=== PATIENT | male | born 1995 | race Caucasian/White ===

== ENCOUNTER 2019-12-09 18:10 | Inpatient (IN) ==
[2019-12-09 18:43] LABS: ABS Eosinophils 0.1 10^3/ul (0-0.6); ABS Lymphocytes 2.2 10^3/ul (1.0-4.8); ABS Monocytes 0.7 10^3/ul (0-0.8); ABS Neutrophils 9.5 10^3/ul (1.5-7.7); Eosinophil % 1.1 %; Hematocrit 45 % (42-52); Hemoglobin 15.8 g/dL (14.0-18.0); Lymphocyte % 17.8 %; Mean Corpuscular HGB Conc 36 g/dL (31-36); Mean Corpuscular Hemoglobin 34 pg (27-31); Mean Corpuscular Volume 94 fL (80-94); Mean Platelet Volume 7.9 fL (7.4-10.4); Platelet Count 306 10^3/uL (150-450); Red Blood Count 4.74 10^6 /uL (4.18-5.48); Red Cell Distribution Width 13 % (10-15); White Blood Count 12.6 10^3/uL (3.5-10.8)
[2019-12-09 18:49] LABS: Urine Appearance Cloudy; Urine Bilirubin Negative (Negative); Urine Blood Negative (Negative); Urine Color Amber; Urine Glucose Negative (Negative); Urine Ketones Trace (Negative); Urine Nitrite Negative (Negative); Urine Protein Negative (Negative); Urine Urobilinogen Positive (Negative)
[2019-12-09] MEDS ORDERED: LORazepam 2 mg VIAL 1 ml IM ONE (18:49)
[2019-12-09] MEDS ORDERED: diPHENhydraMINE IV 50 MG/ML 1 ml VIAL (BENADRYL) IM ONE (18:49)
[2019-12-09] MEDS ORDERED: Haloperidol 5 mg/ml SDV IV/IM 5 MG/ML AMP IM ONE (18:49)
[2019-12-09] MEDS ORDERED: Lorazepam PYXIS KEY ONE (18:51)
[2019-12-09 19:04] LABS: ALT 13 U/L (7-52); AST 18 U/L (13-39); Albumin 5.2 g/dL (3.2-5.2); Alkaline Phosphatase 43 U/L (34-104); Anion Gap 9 mmol/L (2-11); BUN/Creatinine Ratio 14.3 (8-20); Blood Urea Nitrogen 15 mg/dL (6-24); CO2 Carbon Dioxide 23 mmol/L (22-32); Calcium 10.5 mg/dL (8.6-10.3); Chloride 107 mmol/L (101-111); EGFR African American 103.3 (>60); EGFR Non-African American 85.4 (>60); Globulin 2.6 g/dL (2-4); Glucose 111 mg/dL (70-100); Sodium 139 mmol/L (135-145); Total Protein 7.8 g/dL (6.4-8.9)
[2019-12-09 19:05] LABS: Urine Benzodiazepine Screen None Detected (None Detect); Urine Cannabinoids Screen Presumptive Positive (None Detect); Urine Opiates Screen None Detected (None Detect)
[2019-12-09 19:25] LABS: Acetaminophen < 15 mcg/mL; Alcohol, S < 10 mg/dL (<10); Salicylate < 2.50 mg/dL (<30)
[2019-12-09 19:40] LABS: TSH Ultra Thyroid Stim Horm 2.27 mcIU/mL (0.34-5.60)
[2019-12-10] MEDS ORDERED: Al Hydrox/Mg Hydrox/Simet LIQ 30 ML UDC PO PRN (06:14)
[2019-12-10] MEDS: Nicotine PATCH 21 MG/24 HR PATCH TRANSDERM SCH (08:17)
[2019-12-10] MEDS: Nicotine GUM 2MG FRUIT FLAVOR PO PRN ×2 (08:18→20:47)
[2019-12-10] MEDS: Vitamin THERAPEUTIC TAB PO SCH (08:18)
[2019-12-11] MEDS: Vitamin THERAPEUTIC TAB PO SCH (08:30)
[2019-12-11] MEDS: Nicotine PATCH 21 MG/24 HR PATCH TRANSDERM SCH (08:30)
[2019-12-11 08:35] LABS: HDL Cholesterol 53.9 mg/dL
[2019-12-11] MEDS: Nicotine GUM 2MG FRUIT FLAVOR PO PRN (14:39)
[2019-12-12] MEDS: Nicotine PATCH 21 MG/24 HR PATCH TRANSDERM SCH (08:34)
[2019-12-12] MEDS: Vitamin THERAPEUTIC TAB PO SCH (08:34)
[2019-12-12] MEDS: Nicotine GUM 2MG FRUIT FLAVOR PO PRN (15:13)
[2019-12-13] MEDS: Vitamin THERAPEUTIC TAB PO SCH (09:22)
[2019-12-13] MEDS: Nicotine GUM 2MG FRUIT FLAVOR PO PRN ×2 (09:22→19:35)
[2019-12-13] MEDS: Nicotine PATCH 21 MG/24 HR PATCH TRANSDERM SCH (11:55)
[2019-12-14] MEDS: Nicotine PATCH 21 MG/24 HR PATCH TRANSDERM SCH (09:24)
[2019-12-14] MEDS: Vitamin THERAPEUTIC TAB PO SCH (09:24)
[2019-12-14] MEDS: Nicotine GUM 2MG FRUIT FLAVOR PO PRN ×2 (16:11→18:46)
[2019-12-15] MEDS: Nicotine PATCH 21 MG/24 HR PATCH TRANSDERM SCH (08:56)
[2019-12-15] MEDS: Vitamin THERAPEUTIC TAB PO SCH (08:57)
[2019-12-15] MEDS: Nicotine GUM 2MG FRUIT FLAVOR PO PRN (09:58)
[2019-12-16] MEDS: Nicotine PATCH 21 MG/24 HR PATCH TRANSDERM SCH (08:17)
[2019-12-16] MEDS: Vitamin THERAPEUTIC TAB PO SCH (08:18)
[2019-12-17] MEDS: Nicotine GUM 2MG FRUIT FLAVOR PO PRN ×4 (08:30→23:12)
[2019-12-17] MEDS: Vitamin THERAPEUTIC TAB PO SCH (08:31)
[2019-12-17] MEDS: Nicotine PATCH 21 MG/24 HR PATCH TRANSDERM SCH (10:50)
[2019-12-18] MEDS: Nicotine PATCH 21 MG/24 HR PATCH TRANSDERM SCH (08:20)
[2019-12-18] MEDS: Vitamin THERAPEUTIC TAB PO SCH (08:20)
[2019-12-18 09:19] VITALS: BP 114/61
== END 2019-12-18 16:03 | disposition home or self-care (01) | DRG 885 ==
LOC: ED 18:10 → BSU 12-10 04:17
PROVIDERS: ADMIT Psychiatry & Neurology Psychiatry; ATTEND Psychiatry & Neurology Psychiatry

== ENCOUNTER 2020-09-28 11:03 | Inpatient (IN) ==
[2020-09-28 11:44] LABS: ABS Eosinophils 0.1 10^3/ul (0-0.6); ABS Monocytes 0.4 10^3/ul (0-0.8); ABS Neutrophils 5.4 10^3/ul (1.5-7.7); Eosinophil % 1.1 %; Hematocrit 46 % (42-52); Lymphocyte % 25.1 %; Mean Corpuscular HGB Conc 35 g/dL (31-36); Mean Corpuscular Hemoglobin 33 pg (27-31); Mean Corpuscular Volume 95 fL (80-94); Mean Platelet Volume 8.4 fL (7.4-10.4); Platelet Count 259 10^3/uL (150-450); Red Blood Count 4.82 10^6 /uL (4.18-5.48); Red Cell Distribution Width 13 % (10-15); White Blood Count 7.9 10^3/uL (3.5-10.8)
[2020-09-28 11:51] LABS: Urine Appearance Clear; Urine Bilirubin Negative (Negative); Urine Blood Negative (Negative); Urine Color Yellow; Urine Glucose Negative (Negative); Urine Ketones Negative (Negative); Urine Nitrite Negative (Negative); Urine Protein Negative (Negative); Urine Specific Gravity 1.011 (1.002-1.030); Urine Urobilinogen Negative (Negative)
[2020-09-28 12:00] LABS: Urine Benzodiazepine Screen None Detected (None Detect); Urine Cannabinoids Screen Presumptive Positive (None Detect); Urine Opiates Screen None Detected (None Detect)
[2020-09-28 12:03] LABS: ALT 11 U/L (7-52); AST 16 U/L (13-39); Albumin 4.7 g/dL (3.2-5.2); Alkaline Phosphatase 50 U/L (35-149); Anion Gap 6 mmol/L (2-11); Blood Urea Nitrogen 10 mg/dL (6-24); CO2 Carbon Dioxide 25 mmol/L (22-32); Calcium 10.1 mg/dL (8.6-10.3); Chloride 107 mmol/L (101-111); EGFR African American 103.7 (>60); EGFR Non-African American 85.7 (>60); Globulin 2.3 g/dL (2-4); Glucose 97 mg/dL (70-100); Potassium 3.7 mmol/L (3.5-5.0); Sodium 138 mmol/L (135-145)
[2020-09-28 12:20] LABS: Alcohol, S < 10 mg/dL (<10); Salicylate < 2.50 mg/dL (<30)
[2020-09-28 12:28] LABS: Acetaminophen < 15 mcg/mL
[2020-09-28 12:36] LABS: TSH Ultra Thyroid Stim Horm 2.77 mcIU/mL (0.34-5.60)
[2020-09-28] MEDS ORDERED: Al Hydrox/Mg Hydrox/Simet LIQ 30 ML UDC PO PRN (15:21)
[2020-09-28] MEDS: Nicotine GUM 2MG FRUIT FLAVOR PO PRN (18:50)
[2020-09-28] MEDS: Lithium Carbonate ER 450mg TAB PO SCH (20:06)
[2020-09-29] MEDS: Nicotine GUM 2MG FRUIT FLAVOR PO PRN ×2 (07:05→08:58)
[2020-09-29] MEDS: Vitamin THERAPEUTIC TAB PO SCH (08:16)
[2020-09-29 12:46] LABS: Lithium < 0.10 mmol/L (0.6-1.2)
[2020-09-29] MEDS: Lithium Carbonate ER 450mg TAB PO SCH (20:38)
[2020-09-30] MEDS: Nicotine GUM 2MG FRUIT FLAVOR PO PRN ×3 (04:15→12:42)
[2020-09-30] MEDS: Vitamin THERAPEUTIC TAB PO SCH (07:53)
[2020-09-30] MEDS: Lithium Carbonate ER 450mg TAB PO SCH (19:33)
[2020-10-01] MEDS: Vitamin THERAPEUTIC TAB PO SCH (07:28)
[2020-10-01] MEDS: Nicotine GUM 2MG FRUIT FLAVOR PO PRN ×2 (08:02→19:00)
[2020-10-01] MEDS: Lithium Carbonate ER 450mg TAB PO SCH (19:29)
[2020-10-02] MEDS: Vitamin THERAPEUTIC TAB PO SCH (07:39)
[2020-10-02] MEDS: Nicotine GUM 2MG FRUIT FLAVOR PO PRN (08:29)
[2020-10-02] MEDS: Lithium Carbonate ER 450mg TAB PO SCH (20:10)
[2020-10-03] MEDS: Vitamin THERAPEUTIC TAB PO SCH (07:28)
[2020-10-03] MEDS: Nicotine GUM 2MG FRUIT FLAVOR PO PRN ×2 (07:29→09:45)
[2020-10-04] MEDS: Lithium Carbonate ER 450mg TAB PO SCH ×2 (00:25→20:29)
[2020-10-04] MEDS: Nicotine GUM 2MG FRUIT FLAVOR PO PRN (06:07)
[2020-10-04] MEDS: Vitamin THERAPEUTIC TAB PO SCH (08:24)
[2020-10-05] MEDS: Nicotine GUM 2MG FRUIT FLAVOR PO PRN ×4 (06:42→19:45)
[2020-10-05] MEDS: Vitamin THERAPEUTIC TAB PO SCH (10:08)
[2020-10-05 15:57] LABS: HDL Cholesterol 60.5 mg/dL
[2020-10-05 16:47] LABS: Lithium 0.43 mmol/L (0.6-1.2)
[2020-10-05] MEDS: Lithium Carbonate ER 450mg TAB PO SCH (20:14)
[2020-10-06] MEDS: Vitamin THERAPEUTIC TAB PO SCH (08:59)
[2020-10-06] MEDS: Nicotine GUM 2MG FRUIT FLAVOR PO PRN ×3 (08:59→17:54)
[2020-10-06] MEDS ORDERED: LORazepam 2 mg VIAL 1 ml ONE (15:13)
[2020-10-06] MEDS ORDERED: diPHENhydraMINE IV 50 MG/ML 1 ml VIAL (BENADRYL) ONE (15:13)
[2020-10-06] MEDS: chlorproMAZINE 50 mg TAB (NF strength) PO PRN (15:20)
[2020-10-06] MEDS ORDERED: Lorazepam PYXIS KEY PRN (15:21)
[2020-10-06] MEDS ORDERED: diPHENhydraMINE IV 50 MG/ML 1 ml VIAL (BENADRYL) IM ONE (15:21)
[2020-10-06] MEDS ORDERED: LORazepam 2 mg VIAL 1 ml IM ONE (15:21)
[2020-10-06] MEDS: Lithium Carbonate ER 450mg TAB PO SCH (20:07)
[2020-10-07] MEDS: Vitamin THERAPEUTIC TAB PO SCH (08:37)
[2020-10-07] MEDS: Nicotine GUM 2MG FRUIT FLAVOR PO PRN (08:38)
[2020-10-07] MEDS: chlorproMAZINE 50 mg TAB (NF strength) PO PRN (17:28)
[2020-10-08] MEDS: Vitamin THERAPEUTIC TAB PO SCH (07:39)
[2020-10-09] MEDS: Nicotine GUM 2MG FRUIT FLAVOR PO PRN (07:29)
[2020-10-09] MEDS: Vitamin THERAPEUTIC TAB PO SCH (08:24)
[2020-10-09] MEDS: chlorproMAZINE 50 mg TAB (NF strength) PO PRN (17:23)
[2020-10-10] MEDS: Vitamin THERAPEUTIC TAB PO SCH (07:16)
[2020-10-10] MEDS: Nicotine GUM 2MG FRUIT FLAVOR PO PRN (09:43)
[2020-10-10] MEDS: chlorproMAZINE 50 mg TAB (NF strength) PO PRN (18:43)
[2020-10-11] MEDS: Vitamin THERAPEUTIC TAB PO SCH (09:04)
[2020-10-11] MEDS: Nicotine GUM 2MG FRUIT FLAVOR PO PRN ×2 (15:28→21:14)
[2020-10-11] MEDS: chlorproMAZINE 50 mg TAB (NF strength) PO PRN (20:19)
[2020-10-12] MEDS: Vitamin THERAPEUTIC TAB PO SCH (08:12)
[2020-10-12] MEDS: Nicotine GUM 2MG FRUIT FLAVOR PO PRN ×3 (08:48→19:17)
[2020-10-12] MEDS: chlorproMAZINE 50 mg TAB (NF strength) PO PRN (15:52)
[2020-10-13] MEDS: Vitamin THERAPEUTIC TAB PO SCH (08:13)
[2020-10-13] MEDS: Nicotine GUM 2MG FRUIT FLAVOR PO PRN ×3 (08:19→14:47)
[2020-10-13] MEDS: Nicotine Lozenge mini 2 MG LOZNG.MINI MT PRN ×2 (15:50→18:20)
[2020-10-14] MEDS: Vitamin THERAPEUTIC TAB PO SCH (07:37)
[2020-10-14] MEDS: Nicotine Lozenge mini 2 MG LOZNG.MINI MT PRN ×3 (07:37→21:56)
[2020-10-14] MEDS: Nicotine GUM 2MG FRUIT FLAVOR PO PRN (13:49)
[2020-10-14] MEDS: chlorproMAZINE 50 mg TAB (NF strength) PO PRN (23:11)
[2020-10-15] MEDS: Vitamin THERAPEUTIC TAB PO SCH (07:27)
[2020-10-15] MEDS: Nicotine Lozenge mini 2 MG LOZNG.MINI MT PRN ×2 (07:29→11:00)
[2020-10-15] MEDS: Nicotine GUM 2MG FRUIT FLAVOR PO PRN (13:46)
[2020-10-15] MEDS: chlorproMAZINE 50 mg TAB (NF strength) PO PRN (14:16)
[2020-10-16] MEDS: Vitamin THERAPEUTIC TAB PO SCH (07:28)
[2020-10-16] MEDS: Nicotine Lozenge mini 2 MG LOZNG.MINI MT PRN ×5 (07:28→19:42)
[2020-10-16] MEDS: Nicotine GUM 2MG FRUIT FLAVOR PO PRN ×2 (13:59→21:30)
[2020-10-16] MEDS: chlorproMAZINE 50 mg TAB (NF strength) PO PRN (21:52)
[2020-10-17] MEDS: Nicotine Lozenge mini 2 MG LOZNG.MINI MT PRN ×4 (01:36→20:12)
[2020-10-17] MEDS: Vitamin THERAPEUTIC TAB PO SCH (07:50)
[2020-10-17] MEDS: chlorproMAZINE 50 mg TAB (NF strength) PO PRN (10:42)
[2020-10-18] MEDS: Vitamin THERAPEUTIC TAB PO SCH (07:50)
[2020-10-18] MEDS: Nicotine Lozenge mini 2 MG LOZNG.MINI MT PRN ×3 (07:52→19:47)
[2020-10-18] MEDS: Nicotine GUM 2MG FRUIT FLAVOR PO PRN (17:19)
[2020-10-19] MEDS: Vitamin THERAPEUTIC TAB PO SCH (07:06)
[2020-10-19] MEDS: Nicotine Lozenge mini 2 MG LOZNG.MINI MT PRN ×3 (07:06→21:21)
[2020-10-19] MEDS: Nicotine GUM 2MG FRUIT FLAVOR PO PRN ×2 (08:50→17:17)
[2020-10-20] MEDS: Vitamin THERAPEUTIC TAB PO SCH (07:55)
[2020-10-20] MEDS: Nicotine Lozenge mini 2 MG LOZNG.MINI MT PRN ×3 (08:26→21:45)
[2020-10-20] MEDS: chlorproMAZINE 50 mg TAB (NF strength) PO PRN ×2 (12:56→20:40)
[2020-10-21] MEDS: Nicotine Lozenge mini 2 MG LOZNG.MINI MT PRN ×4 (04:21→20:02)
[2020-10-21] MEDS: Vitamin THERAPEUTIC TAB PO SCH (08:05)
[2020-10-21] MEDS: chlorproMAZINE 50 mg TAB (NF strength) PO PRN (12:05)
[2020-10-22] MEDS: Nicotine Lozenge mini 2 MG LOZNG.MINI MT PRN ×3 (06:08→13:53)
[2020-10-22] MEDS: Vitamin THERAPEUTIC TAB PO SCH (08:20)
[2020-10-22] MEDS: Nicotine GUM 2MG FRUIT FLAVOR PO PRN (15:37)
[2020-10-22] MEDS: chlorproMAZINE 50 mg TAB (NF strength) PO PRN (17:27)
[2020-10-23] MEDS: Nicotine Lozenge mini 2 MG LOZNG.MINI MT PRN ×3 (06:28→19:29)
[2020-10-23] MEDS: Vitamin THERAPEUTIC TAB PO SCH (08:16)
[2020-10-23] MEDS: Nicotine GUM 2MG FRUIT FLAVOR PO PRN ×2 (08:17→17:38)
[2020-10-23] MEDS: chlorproMAZINE 50 mg TAB (NF strength) PO PRN (15:00)
[2020-10-24] MEDS: Nicotine Lozenge mini 2 MG LOZNG.MINI MT PRN ×7 (00:04→20:27)
[2020-10-24] MEDS: Vitamin THERAPEUTIC TAB PO SCH (08:23)
[2020-10-25] MEDS: Nicotine Lozenge mini 2 MG LOZNG.MINI MT PRN ×2 (02:20→17:59)
[2020-10-25] MEDS: Vitamin THERAPEUTIC TAB PO SCH (08:30)
[2020-10-26] MEDS: Nicotine Lozenge mini 2 MG LOZNG.MINI MT PRN ×5 (02:14→21:15)
[2020-10-26] MEDS: Vitamin THERAPEUTIC TAB PO SCH (08:14)
[2020-10-27] MEDS: Nicotine Lozenge mini 2 MG LOZNG.MINI MT PRN ×3 (05:36→15:51)
[2020-10-27] MEDS: Nicotine GUM 2MG FRUIT FLAVOR PO PRN ×2 (07:16→17:35)
[2020-10-27] MEDS: Vitamin THERAPEUTIC TAB PO SCH (07:16)
[2020-10-28] MEDS: Nicotine Lozenge mini 2 MG LOZNG.MINI MT PRN ×3 (00:16→20:10)
[2020-10-28] MEDS: Vitamin THERAPEUTIC TAB PO SCH (08:14)
[2020-10-28] MEDS: chlorproMAZINE 50 mg TAB (NF strength) PO PRN (12:23)
[2020-10-29] MEDS: Vitamin THERAPEUTIC TAB PO SCH (08:14)
[2020-10-29] MEDS: Nicotine Lozenge mini 2 MG LOZNG.MINI MT PRN (19:48)
[2020-10-30] MEDS: Vitamin THERAPEUTIC TAB PO SCH (08:04)
[2020-10-30] MEDS: Nicotine Lozenge mini 2 MG LOZNG.MINI MT PRN ×4 (08:05→17:55)
[2020-10-31] MEDS: Vitamin THERAPEUTIC TAB PO SCH (08:20)
[2020-10-31] MEDS: Nicotine Lozenge mini 2 MG LOZNG.MINI MT PRN ×5 (08:21→23:28)
[2020-11-01] MEDS: Vitamin THERAPEUTIC TAB PO SCH (07:47)
[2020-11-01] MEDS: Nicotine Lozenge mini 2 MG LOZNG.MINI MT PRN ×3 (07:48→19:55)
[2020-11-01] MEDS: Nicotine GUM 2MG FRUIT FLAVOR PO PRN (17:38)
[2020-11-02] MEDS: Vitamin THERAPEUTIC TAB PO SCH (08:21)
[2020-11-02] MEDS: Nicotine GUM 2MG FRUIT FLAVOR PO PRN (08:21)
[2020-11-02] MEDS: Nicotine Lozenge mini 2 MG LOZNG.MINI MT PRN ×2 (12:46→21:22)
[2020-11-02] MEDS: chlorproMAZINE 50 mg TAB (NF strength) PO PRN (19:46)
[2020-11-03] MEDS: Nicotine Lozenge mini 2 MG LOZNG.MINI MT PRN ×3 (08:16→17:27)
[2020-11-03] MEDS: Vitamin THERAPEUTIC TAB PO SCH (08:16)
[2020-11-04] MEDS: Nicotine Lozenge mini 2 MG LOZNG.MINI MT PRN ×4 (01:53→20:38)
[2020-11-04] MEDS: Vitamin THERAPEUTIC TAB PO SCH (08:06)
[2020-11-05] MEDS: Nicotine Lozenge mini 2 MG LOZNG.MINI MT PRN ×6 (03:01→20:28)
[2020-11-05] MEDS: Vitamin THERAPEUTIC TAB PO SCH (08:19)
[2020-11-06] MEDS: Vitamin THERAPEUTIC TAB PO SCH (08:33)
[2020-11-06] MEDS: Nicotine Lozenge mini 2 MG LOZNG.MINI MT PRN ×3 (08:33→17:28)
[2020-11-07] MEDS: Nicotine Lozenge mini 2 MG LOZNG.MINI MT PRN ×3 (06:42→19:44)
[2020-11-07] MEDS: Vitamin THERAPEUTIC TAB PO SCH (08:20)
[2020-11-07] MEDS: Nicotine GUM 2MG FRUIT FLAVOR PO PRN (08:22)
[2020-11-07 08:51] LABS: Albumin 4.8 g/dL (3.2-5.2); Albumin/Globulin Ratio 1.8 (1-3); EGFR Non-African American 91.7 (>60); Globulin 2.7 g/dL (2-4); Potassium 4.2 mmol/L (3.5-5.0); Total Bilirubin 0.4 mg/dL (0.2-1.0); Total Protein 7.5 g/dL (6.4-8.9)
[2020-11-07 09:16] LABS: Carbamazepine 6.7 mcg/mL (4.0-12.0)
[2020-11-08] MEDS: Vitamin THERAPEUTIC TAB PO SCH (08:13)
[2020-11-08] MEDS: Nicotine Lozenge mini 2 MG LOZNG.MINI MT PRN ×3 (08:15→20:14)
[2020-11-09] MEDS: Nicotine Lozenge mini 2 MG LOZNG.MINI MT PRN ×5 (06:12→20:55)
[2020-11-09] MEDS: Vitamin THERAPEUTIC TAB PO SCH (08:25)
[2020-11-09] MEDS: Nicotine GUM 2MG FRUIT FLAVOR PO PRN (18:28)
[2020-11-10] MEDS: Nicotine Lozenge mini 2 MG LOZNG.MINI MT PRN ×5 (06:58→20:31)
[2020-11-10] MEDS: Vitamin THERAPEUTIC TAB PO SCH (08:45)
[2020-11-10] MEDS: Nicotine GUM 2MG FRUIT FLAVOR PO PRN (15:40)
[2020-11-11] MEDS: Vitamin THERAPEUTIC TAB PO SCH (07:04)
[2020-11-11] MEDS: Nicotine Lozenge mini 2 MG LOZNG.MINI MT PRN ×2 (07:04→10:09)
[2020-11-11 07:53] VITALS: BP 109/61
== END 2020-11-11 11:45 | DRG 753 ==
LOC: ED 11:03 → BSU 12:32
PROVIDERS: ADMIT Psychiatry & Neurology Psychiatry; ATTEND Psychiatry & Neurology Psychiatry

== ENCOUNTER 2022-03-22 09:00 | Inpatient (IN) ==
[2022-03-22 09:56] LABS: Urine Appearance Cloudy; Urine Bilirubin Negative (Negative); Urine Blood Negative (Negative); Urine Color Yellow; Urine Glucose Negative (Negative); Urine Ketones Negative (Negative); Urine Nitrite Negative (Negative); Urine Protein Negative (Negative); Urine Specific Gravity 1.013 (1.002-1.030); Urine Urobilinogen Negative (Negative)
[2022-03-22 10:12] LABS: Urine Benzodiazepine Screen None Detected (None Detect); Urine Cannabinoids Screen None Detected (None Detect); Urine Opiates Screen None Detected (None Detect)
[2022-03-22 11:41] LABS: ABS Eosinophils 0.2 10^3/ul (0-0.6); ABS Lymphocytes 2.4 10^3/ul (1.0-4.8); ABS Monocytes 0.5 10^3/ul (0-0.8); ABS Neutrophils 6.8 10^3/ul (1.5-7.7); Eosinophil % 2.3 %; Hematocrit 47 % (42-52); Hemoglobin 15.7 g/dL (14.0-18.0); Lymphocyte % 23.7 %; Mean Corpuscular HGB Conc 34 g/dL (31-36); Mean Corpuscular Hemoglobin 32 pg (27-31); Mean Corpuscular Volume 97 fL (80-94); Mean Platelet Volume 7.9 fL (7.4-10.4); Platelet Count 285 10^3/uL (150-450); Red Blood Count 4.85 10^6 /uL (4.18-5.48); Red Cell Distribution Width 13 % (10-15)
[2022-03-22 12:26] LABS: ALT 8 U/L (7-52); AST 15 U/L (13-39); Acetaminophen < 15 mcg/mL; Albumin/Globulin Ratio 2.4 (1-3); Alcohol, S < 13 mg/dL (<13); Alkaline Phosphatase 49 U/L (35-149); Anion Gap 9 mmol/L (2-11); Blood Urea Nitrogen 8 mg/dL (6-24); CO2 Carbon Dioxide 22 mmol/L (22-32); Calcium 10.1 mg/dL (8.6-10.3); Chloride 108 mmol/L (101-111); Globulin 2.1 g/dL (2-4); Glucose 96 mg/dL (70-100); Potassium 4.1 mmol/L (3.5-5.0); Salicylate < 2.50 mg/dL (<30); Sodium 139 mmol/L (135-145); Total Protein 7.1 g/dL (6.4-8.9); eGFR CKD-EPI 122.7 (>60)
[2022-03-22] MEDS ORDERED: Al Hydrox/Mg Hydrox/Simet LIQ 30 ML UDC PO PRN (12:32)
[2022-03-22] MEDS ORDERED: Nicotine GUM 2MG FRUIT FLAVOR PO PRN (12:33)
[2022-03-22 12:40] LABS: TSH Ultra Thyroid Stim Horm 1.73 mcIU/mL (0.34-5.60)
[2022-03-23 12:28] LABS: Urine Benzodiazepine Screen None Detected (None Detect); Urine Buprenorphine Screen None Detected (None Detect); Urine Cannabinoids Screen None Detected (None Detect); Urine Fentanyl Screen None Detected (None Detect); Urine Hydrocodone Screen None Detected (None Detect); Urine Opiates Screen None Detected (None Detect)
[2022-03-24 08:36] VITALS: BP 115/72
== END 2022-03-24 12:30 | disposition home or self-care (01) | DRG 753 ==
LOC: ED 09:00 → EDHOLD 12:37 → BSU 13:53
PROVIDERS: ADMIT Psychiatry & Neurology Psychiatry; ATTEND Psychiatry & Neurology Psychiatry